=== PATIENT | female | born 1985 | race African-American/Black ===

== ENCOUNTER 2016-09-21 16:56 | Emergency (ER) | payer OTHER ==
[~2016-09-21 16:56] MED LIST: FLEXERIL10 M1 PO; IBUPROFEN600 MG PO; METROGEL-VAGINA70 GM VG; PRENATAL MULITV1 TAB PO
== END 2016-09-21 17:47 | disposition home or self-care (01) ==
LOC: SED 16:56
DX: H92.01 Otalgia, right ear (principal); K08.89 Other specified disorders of teeth and supporting structures; Z88.0 Allergy status to penicillin; Z88.2 Allergy status to sulfonamides
CPT/HCPCS: 99283